=== PATIENT | female | born 1980 ===

== ENCOUNTER 2019-07-04 21:20 | Emergency (ER) | payer SELFPAY ==
[2019-07-04 21:20] VITALS: BP 142/103; PULSE 93; RESP 18; TEMP 37.4; O2SAT 96
--- NOTE | 2019-07-04 21:21 | W.ED.GENAD ---
Discharge Plan Disposition Patient Disposition: [facility] Condition: Stable Discharge Details Chief Complaint: ETOHWithdr Clinical Impression: Alcohol intoxication ED Provider: Salbador Johnson Discharge Instructions Instructions: Alcohol Intoxication (ED) Medical Decision Making 39 yo female with unknown medical history comes in with ems with alcohol intoxication. Per report her and her are homeless but had temporary placement at local motel. They were being evicted out today and when [facility] went to talk with her she was asleep. They woke her up and she was beligerent and states she probably had 8-10 shots of liquor. She was combative with vsp so she was placed in handcuffs, ems was called and was brought here. When she arrived handcuffs were immediately removed. She is awake and is oriented to person place and time though has slurred speech. No signs of trauma. Has heavy smell of alcohol. Intermittently yelling but is redirectable, denies si/hi. POC glucose 150 on arrival. This seems primarily all alcohol induced and she admits to this and denies other drug use. Will see if she can have detox arranged with PD for the night. mental health evaluated and will go to long term until sober. Patient remains caox4 intermittently yelling but no si/hi or focal deficits Differential Diagnosis Differential Diagnosis: alcohol intoxication, drug abuse HPI General Mode of arrival: EMS. Date/Time Provider Initiated Documentation: 07/04/19 21:20. Limitations to Documentation: no limitations. Information obtained by: patient. History of Present Illness 39 year old F presents to the emergency department with the chief complaint of alcohol intoxication, described as moderate, Patient started experiencing this unknown and it has been constant. No relieving factors improve symptom(s), No exacerbating factors reported . Patient did receive the following treatments prior to arrival, none Review of Systems All systems reviewed & are unremarkable except as noted in HPI and below Constitutional Constitutional: Denies chills and Denies fever(s) Cardiovascular Cardiovascular: Denies chest pain and Denies dyspnea Respiratory Respiratory: Denies dyspnea Gastrointestinal Gastrointestinal: Denies abdominal pain and Denies vomiting Psychiatric Psychiatric: Denies depression PFSH Social History Smoking/Tobacco Use Status: Current every day Tobacco Type: cigarettes Alcohol Intake: current Alcohol Intake frequency: 3 or more drinks per day Alcohol type: beer and hard liquor Details: when asked about recreations drugs pt stated, i do what ever I can get my hands on Additional Social history: pt refuses to anser safety questions. Exam Const General: intoxicated appearing Orientation: alert HENMT Head: normal to inspection Ears: external ears normal General nose exam: external nose normal Mouth: moist mucous membranes Eyes General: appearance normal, both eyes and all related structures Neck Neck: normal visual inspection Resp Effort & Inspection: normal respiratory effort and able to speak in complete sentences Cardio Rate: regular rate Skin General skin exam: no rashes or lesions noted Neuro General: patient alert Extrem General: normal to inspection
--- NOTE | 2019-07-04 21:35 | NUR.NOTE ---
Nursing Note:pt breathalized is 0.223
--- NOTE | 2019-07-04 21:59 | NUR.NOTE ---
Nursing Note: pt screaing obsinities to staff and [facility]. Pt continued to throw self around stretcher, lowering self to floor. pt placed on stretcher pad on floor for safety.
== END 2019-07-04 22:30 | disposition home or self-care (01) ==
LOC: ER 22:35
PROVIDERS: Emergency Provider Emergency Medicine
DX: F10.120 Alcohol abuse with intoxication, uncomplicated (principal); Z59.0 Homelessness
CPT/HCPCS: 36415; 81025; 82962; 99285; 80320; 99283